=== PATIENT | male | born 1975 | race Caucasian/White ===

== ENCOUNTER 2017-05-18 00:57 | Observation (INO) | payer SELFPAY ==
[~2017-05-18] VITALS: Ht 172.7 cm; Wt 102.3 kg
[2017-05-18] VITALS (9 sets, daily range): BP systolic 133–155; BP diastolic 77–97; PULSE 87–120; RESP 16–20; TEMP 97.6–98.7; O2SAT 94–98
[2017-05-18] MEDS ORDERED: IOHEXOL 350 MG/ML 10 ML VIAL (for RAD DIAG) IVCONTRAST ONE (00:58)
[2017-05-18] MEDS ORDERED: SODIUM CHLOR 0.9% 1000 ML INJ 1,000 ML IV SCH (01:09)
[2017-05-18] MEDS ORDERED: THIAMINE INJ 100 MG in SODIUM CHLORIDE 0.9% INJ 100 ML IV ONE (01:15)
[2017-05-18] MEDS ORDERED: SODIUM CHLORIDE 0.9% FLUSH 10 ML FLUSH IV FLUSH PRN ×2 (01:15→05:15)
[2017-05-18 01:21] LABS: BASOPHIL % 0.5 % (0.0-2.0); EOSINOPHIL # 0.1 TH/MM3 (0-0.4); HEMOGLOBIN 14.6 GM/DL (13.0-17.0); LYMPH % 32.3 % (9.0-44.0); LYMPHOCYTE # 1.7 TH/MM3 (1.0-4.8); MEAN CELL VOLUME 91.8 FL (80.0-100.0); MEAN CORPUSCULAR HEMOGLOBIN 30.5 PG (27.0-34.0); MEAN CORPUSCULAR HGB CONC 33.2 % (32.0-36.0); MEAN PLATELET VOLUME 7.2 FL (7.0-11.0); MONO % 11.3 % (0.0-8.0); MONOCYTE # 0.6 TH/MM3 (0-0.9); NEUT % 54.9 % (16.0-70.0); PLATELET COUNT 178 TH/MM3 (150-450); RED BLOOD COUNT 4.79 MIL/MM3 (4.50-5.90); RED CELL DISTRIBUTION WIDTH 13.2 % (11.6-17.2); WHITE BLOOD COUNT 5.4 TH/MM3 (4.0-11.0)
[2017-05-18 01:28] LABS: CHLORIDE 105 MEQ/L (98-107); SODIUM (NA) 138 MEQ/L (136-145)
[2017-05-18 01:31] LABS: ALBUMIN 3.7 GM/DL (3.4-5.0); BICARBONATE 25.9 MEQ/L (21.0-32.0); CALCIUM 7.9 MG/DL (8.5-10.1); GLUCOSE,RANDOM 126 MG/DL (74-106)
[2017-05-18 01:32] LABS: BLOOD UREA NITROGEN 10 MG/DL (7-18)
[2017-05-18 01:34] LABS: ALT (GPT) 23 U/L (12-78); AST (GOT) 31 U/L (15-37)
[2017-05-18 01:35] LABS: CREATININE 0.93 MG/DL (0.60-1.30); GLOMERULAR FILTRATION RATE 90 ML/MIN (>89)
[2017-05-18 01:36] LABS: TOTAL PROTEIN 8.1 GM/DL (6.4-8.2)
[2017-05-18 01:37] LABS: ALKALINE PHOSPHATASE 71 U/L (45-117)
[2017-05-18 01:39] LABS: TROPONIN I LESS THAN 0.02 NG/ML (0.02-0.05)
[2017-05-18 01:47] LABS: TOTAL BILIRUBIN ADULT 0.3 MG/DL (0.2-1.0)
--- NOTE | 2017-05-18 01:52 | PD ---
HPI Chief Complaint: GI Complaint Time Seen by Provider: 01:09 Travel History International Travel<30 days: No Contact w/Intl Traveler<30days: No Traveled to known affect area: No History of Present Illness HPI The patient is a 41-year-old male that three fourths of a gallon of rum an 18 pack of beer within the last 24 hours. He states for the last 2 days he was coughing up some blood and this is what brought him in. He denies any history of cirrhosis or pancreatitis. [facility] Social History Tobacco Use: Yes Allergies-Medications (Allergen,Severity, Reaction): Coded Allergies: No Known Allergies (Unverified , 05/18/17) Reported Meds & Prescriptions Reported Meds & Active Scripts Active Reported Prilosec (Omeprazole Magnesium) 20 Mg Tab 1 Tab PO DAILY Review of Systems Except as stated in HPI: all other systems reviewed are Neg Physical Exam Narrative GENERAL: The patient is alert, oriented 3, obese and in slight apparent distress with his left upper quadrant abdominal discomfort. He appears moderately dehydrated. His vital signs show blood pressure 155/97 with heart rate of 120 but the rest of vital signs are normal. He does not appear clinically intoxicated. SKIN: Focused skin assessment warm/dry. HEAD: Atraumatic. Normocephalic. EYES: Pupils equal and round. No scleral icterus. No injection or drainage. ENT: No nasal bleeding or discharge. Mucous membranes pink and moist. NECK: Trachea midline. No JVD. CARDIOVASCULAR: Regular rate and rhythm. No murmur appreciated. RESPIRATORY: No accessory muscle use. Clear to auscultation. Breath sounds equal bilaterally. GASTROINTESTINAL: Abdomen soft, with tenderness to direct palpation in the left upper/middle quadrants, nondistended. Hepatic and splenic margins not palpable. No guarding or rebound is present. MUSCULOSKELETAL: No obvious deformities. No clubbing. No cyanosis. No edema. NEUROLOGICAL: Awake and alert. No obvious cranial nerve deficits. Motor grossly within normal limits. Normal speech. PSYCHIATRIC: Appropriate mood and affect; insight and judgment normal. Data Data Last Documented VS Vital Signs Date Time Temp Pulse Resp B/P (MAP) Pulse Ox O2 Delivery O2 Flow Rate FiO2 05/18/17 04:12 90 18 98 Nasal Cannula 2.00 05/18/17 00:57 98.2 Orders Orders Electrocardiogram (05/18/17 01:09) Complete Blood Count With Diff (05/18/17 01:09) Comprehensive Metabolic Panel (05/18/17 01:09) Troponin I (05/18/17 01:09) Ecg Monitoring (05/18/17 01:09) Iv Access Insert/Monitor (05/18/17 01:09) Oximetry (05/18/17 01:09) Sodium Chloride 0.9% Flush (Ns Flush) (05/18/17 01:15) Sodium Chlor 0.9% 1000 Ml Inj (Ns 1000 M (05/18/17 01:09) Thiamine Inj (Thiamine Inj) (05/18/17 01:15) Alcohol (Ethanol) (05/18/17 01:09) Chest, Pa & Lat (05/18/17 01:34) Ct Abd/Pel W Iv Contrast(Rout) (05/18/17 01:39) Lipase (05/18/17 01:10) Iohexol 350 Inj (Omnipaque 350 Inj) (05/18/17 00:58) Pantoprazole Inj (Protonix Inj) (05/18/17 05:15) Famotidine Inj (Pepcid Inj) (05/18/17 05:15) Vital Signs (Adult) Q4H (05/18/17 05:12) Bedside Glucose ROEL.CSUGAR (05/18/17 05:12) Intake + Output ROEL.QSHIFT (05/18/17 05:12) Alcohol Withdrawal Asmt-Ciwa Q4HX18 (05/18/17 05:12) ^ Seizure Precautions (05/18/17 05:12) Folic Acid (Folate) (05/18/17 09:00) Thiamine (Vit B1) (Vitamin B1) (05/18/17 09:00) Multivitamins-Minerals Therap (Theragran (05/18/17 09:00) Consult Cm-Etoh Abuse Dc Plan (05/18/17 ) Flumazenil Inj (Romazicon Inj) (05/18/17 05:15) Lorazepam (Ativan) (05/18/17 05:15) Lorazepam Inj (Ativan Inj) (05/18/17 05:15) Lorazepam (Ativan) (05/18/17 05:15) Lorazepam Inj (Ativan Inj) (05/18/17 05:15) Lorazepam Inj (Ativan Inj) (05/18/17 05:15) Lorazepam Inj (Ativan Inj) (05/18/17 05:15) Haloperidol Inj (Haldol Inj) (05/18/17 05:15) Hgb & Hct (05/18/17 12:00) Famotidine Inj (Pepcid Inj) (05/18/17 21:00) Place In Observation (05/18/17 ) Vital Signs (Adult) Q4H (05/18/17 05:12) Activity Oob Ad Avani (05/18/17 05:12) Advertising Sales Assistant / Telemetry .CONTINUOUS (05/18/17 05:12) Intake + Output ROEL.QSHIFT (05/18/17 05:12) Diet Regular Basic (05/18/17 Breakfast) Sodium Chlor 0.9% 1000 Ml Inj (Ns 1000 M (05/18/17 05:12) Sodium Chloride 0.9% Flush (Ns Flush) (05/18/17 05:15) Sodium Chloride 0.9% Flush (Ns Flush) (05/18/17 09:00) Ondansetron Inj (Zofran Inj) (05/18/17 05:15) Comprehensive Metabolic Panel (05/19/17 06:00) Complete Blood Count With Diff (05/19/17 06:00) Scd Bilateral/Knee High ROEL.BID (05/18/17 05:12) Will Bilateral/Knee High ROEL.QSHIFT (05/18/17 05:15) Acetaminophen (Tylenol) (05/18/17 05:15) Oxycodone (Roxicodone) (05/18/17 05:15) Oxycodone (Roxicodone) (05/18/17 05:15) Docusate Sodium-Senna (Vonda-Colace) (05/18/17 09:00) Magnesium Hydroxide Liq (Milk Of Magnesi (05/18/17 05:15) Sennosides (Senokot) (05/18/17 05:15) Bisacodyl Supp (Dulcolax Supp) (05/18/17 05:15) Lactulose Liq (Lactulose Liq) (05/18/17 05:15) Admit Order (Ed Use Only) (05/18/17 05:15) Labs Laboratory Tests Test 05/18/17 01:10 White Blood Count 5.4 TH/MM3 Red Blood Count 4.79 MIL/MM3 Hemoglobin 14.6 GM/DL Hematocrit 44.0 % Mean Corpuscular Volume 91.8 FL Mean Corpuscular Hemoglobin 30.5 PG Mean Corpuscular Hemoglobin Concent 33.2 % Red Cell Distribution Width 13.2 % Platelet Count 178 TH/MM3 Mean Platelet Volume 7.2 FL Neutrophils (%) (Auto) 54.9 % Lymphocytes (%) (Auto) 32.3 % Monocytes (%) (Auto) 11.3 % Eosinophils (%) (Auto) 1.0 % Basophils (%) (Auto) 0.5 % Neutrophils # (Auto) 3.0 TH/MM3 Lymphocytes # (Auto) 1.7 TH/MM3 Monocytes # (Auto) 0.6 TH/MM3 Eosinophils # (Auto) 0.1 TH/MM3 Basophils # (Auto) 0.0 TH/MM3 CBC Comment DIFF FINAL Differential Comment Blood Urea Nitrogen 10 MG/DL Creatinine 0.93 MG/DL Random Glucose 126 MG/DL Total Protein 8.1 GM/DL Albumin 3.7 GM/DL Calcium Level 7.9 MG/DL Alkaline Phosphatase 71 U/L Aspartate Amino Transf (AST/SGOT) 31 U/L Alanine Aminotransferase (ALT/SGPT) 23 U/L Total Bilirubin 0.3 MG/DL Sodium Level 138 MEQ/L Potassium Level 3.4 MEQ/L Chloride Level 105 MEQ/L Carbon Dioxide Level 25.9 MEQ/L Anion Gap 7 MEQ/L Estimat Glomerular Filtration Rate 90 ML/MIN Troponin I LESS THAN 0.02 NG/ML Lipase 213 U/L Ethyl Alcohol Level 339 MG/DL [facility] Medical Decision Making Medical Screen Exam Complete: Yes Emergency Medical Condition: Yes Medical Record Reviewed: Yes Interpretation(s) The CBC is normal. The complete metabolic profile shows a calcium of 7.9, potassium 3.4 but is otherwise unremarkable. The troponin I is less than 0.02. The alcohol level is 339. The lipase is 213. The chest x-ray shows no evidence of acute cardiopulmonary disease. The EKG shows sinus tachycardia with a rate of [address] elevation or depression. The CT abdomen/ pelvis shows no acute abnormality. Differential Diagnosis Alcohol gastritis, ulcer pain, acute alcohol intoxication, electrolyte disorder , anemia Narrative Course The patient has not vomited in the emergency department since he arrived. It is only through his history that he states he vomited blood. He likely has alcohol gastritis. He certainly does have alcohol intoxication. His abdominal pain apparently is minimal. He has been sleeping most of the time here in the emergency department. Has a high level of alcohol and claims to have been vomiting blood. He will be [address] Guzman, I discussed the patient with her. At this time the patient is stable with normal hemoglobin. Physician Communication Physician Communication I discussed the patient with Dr. Guzman, the patient will be 23 hour observation to her. Diagnosis Primary Impression: Alcoholic gastritis with bleeding Additional Impression: Alcohol intoxication Admitting Information Admitting Physician Requests: Observation Med/Other Pt SpecificInfo: No Change to Meds Jose Manuel Franz MD May 18, 2017 01:52
--- NOTE | 2017-05-18 01:57 | RADRPT ---
EXAM DATE/TIME: 05/18/2017 01:40 [facility] COMPARISON: No previous studies available for comparison. INDICATIONS : Hemoptysis starting today MEDICAL HISTORY : None. SURGICAL HISTORY : None. ENCOUNTER: Initial ACUITY: 1 day PAIN SCORE: 0/10 LOCATION: Bilateral chest FINDINGS: PA and lateral views of the chest demonstrate the lungs to be symmetrically aerated without evidence of mass, infiltrate or effusion. The cardiomediastinal contours are unremarkable. Osseous structure s are intact. CONCLUSION: No evidence of acute cardiopulmonary disease. Malik Pandey MD on May 18, 2017 at 1:55 Board Certified Radiologist. This report was verified electronically.
--- NOTE | 2017-05-18 02:52 | RADRPT ---
EXAM DATE/TIME: 05/18/2017 02:24 [facility] COMPARISON: No previous studies available for comparison. INDICATIONS : Vomiting up blood. IV CONTRAST: 95 cc Omnipaque 350 (iohexol) IV ORAL CONTRAST: No oral contrast ingested. RADIATION DOSE: 21.45 CTDIvol (mGy) MEDICAL HISTORY : Alcohol abuse SURGICAL HISTORY : None. ENCOUNTER: Initial ACUITY: 1 day PAIN SCALE: 0/10 LOCATION: abdomen TECHNIQUE: Volumetric scanning of the abdomen and pelvis was performed. Using automated exposure control and ad justment of the mA and/or kV according to patient size, radiation dose was kept as low as reasonably achievable to obtain optimal diagnostic quality images. DICOM format image data is available electro nically for review and comparison. FINDINGS: LOWER LUNGS: The visualized lower lungs are clear. LIVER: Homogeneous density without lesion. There is no dilation of the biliary tree. No calcified gallston es. SPLEEN: Normal size without lesion. PANCREAS: Within normal limits. KIDNEYS: Normal in size and shape. There is no mass, stone or hydronephrosis. ADRENAL GLANDS: Within normal limits. VASCULAR: There is no aortic aneurysm. BOWEL/MESENTERY: The stomach, small bowel, and colon demonstrate no acute abnormality. There is no free intraperitone al air or fluid. No perceptible varices. The appendix is well-visualized and normal. ABDOMINAL WALL: Within normal limits. RETROPERITONEUM: There is no lymphadenopathy. BLADDER: No wall thickening or mass. REPRODUCTIVE: Within normal limits. INGUINAL: There is no lymphadenopathy or hernia. MUSCULOSKELETAL: Within normal limits for patient age. CONCLUSION: No acute abnormality demonstrated. Malik Pandey MD on May 18, 2017 at 2:50 Board Certified Radiologist. This report was verified electronically.
[2017-05-18] MEDS ORDERED: PRIL20TA2 PO (02:55)
[2017-05-18] MEDS ORDERED: ACETAMINOPHEN 325 MG TAB PO PRN (05:15)
[2017-05-18] MEDS ORDERED: PANTOPRAZOLE SODIUM 40 MG VIAL IVP ONE (05:15)
[2017-05-18] MEDS ORDERED: HALOPERIDOL LACTATE 5 MG/ML AMP IM PRN (05:15)
[2017-05-18] MEDS ORDERED: LORazepam 1 MG TAB PO PRN (05:15)
[2017-05-18] MEDS ORDERED: FAMOTIDINE 20 MG/2 ML VIAL IV PUSH ONE (05:15)
[2017-05-18] MEDS ORDERED: FLUMAZENIL 0.5 MG/5 ML VIAL IV PUSH PRN (05:15)
[2017-05-18] MEDS ORDERED: BISACODYL 10 MG SUPP RECTAL PRN (05:15)
[2017-05-18] MEDS ORDERED: LORazepam 2 MG TAB PO PRN (05:15)
[2017-05-18] MEDS ORDERED: MAGNESIUM HYDROXIDE SUSP 30 ML CUP PO PRN (05:15)
[2017-05-18] MEDS ORDERED: SENNOSIDES 8.6 MG TAB PO PRN (05:15)
[2017-05-18] MEDS ORDERED: LACTULOSE SYRUP 20 GM/30 ML CUP PO PRN (05:15)
[2017-05-18] MEDS ORDERED: LORazepam 2 MG/ML VIAL IV PUSH PRN ×3 (05:15)
[2017-05-18] MEDS: SODIUM CHLOR 0.9% 1000 ML INJ 1,000 ML IV SCH ×2 (05:30→15:12)
[2017-05-18] MEDS: ONDANSETRON HCL 4 MG/2 ML VIAL IVP PRN ×3 (05:49→18:17)
[2017-05-18 08:00] LABS: HEMATOCRIT 39.9 % (39.0-51.0); HEMOGLOBIN 13.5 GM/DL (13.0-17.0)
[2017-05-18] MEDS: SODIUM CHLORIDE 0.9% FLUSH 10 ML FLUSH IV FLUSH SCH ×2 (08:47→22:33)
[2017-05-18] MEDS: FOLIC ACID 1 MG TAB PO SCH (08:47)
[2017-05-18] MEDS: DOCUSATE SODIUM 50 MG/SENNA 8.6 MG TAB PO SCH ×2 (08:47→22:33)
[2017-05-18] MEDS: MULTIVITAMINS/MINERALS THERAPEUTIC TAB PO SCH (08:47)
[2017-05-18] MEDS: THIAMINE HCL 100 MG TAB PO SCH (08:47)
[2017-05-18] MEDS: LORazepam 2 MG/ML VIAL IV PUSH PRN ×3 (10:03→18:18)
--- NOTE | 2017-05-18 11:17 | EKG ---
Date Performed: 05/18/2017 Time Performed: 01:25:36 PTAGE: 41 years EKG: SINUS TACHYCARDIA ABNORMAL RHYTHM ECG NO PREVIOUS TRACING DOCTOR: Ghanshyam Navarro Interpretating Date/Time 05/18/2017 11:12:43
--- NOTE | 2017-05-18 11:51 | HHI.HP ---
[facility] Service [facility] Primary Care Physician No Primary Care Physician Admission Diagnosis Alcohol gastritis, alcohol intoxication Diagnoses: (1) Hematemesis Diagnosis: Principal (2) Hemoptysis Diagnosis: Principal (3) Alcohol intoxication Diagnosis: Secondary (4) Alcoholic gastritis with bleeding Diagnosis: Principal (5) Delirium tremens Diagnosis: Principal (6) Alcohol withdrawal delirium Diagnosis: Principal Travel History International Travel<30 Days: No Contact w/Intl Traveler <30 Da: No Traveled to Known Affected Are: No History of Present Illness Mr. Ac is a 41-year-old male. He has a past history of alcoholism. He says he's been drinking very heavily for the past 2 weeks but drinks heavily at baseline for the past 10 years. For the past 2 days he's been vomiting blood and coughing up blood. He came in the hospital for evaluation of this. He also has severe abdominal pain. Nausea and vomiting present. No fever reported. She feels at the point when I am seeing him that he is entered withdrawal. He has tremor. His abdominal cramping. No other complaints today. Review of Systems Constitutional: DENIES: Fatigue, Fever, Chills Eyes: DENIES: Diplopia, Eye inflammation, Eye pain Ears, nose, mouth, throat: DENIES: Hearing loss, Vertigo, Nasal discharge Respiratory: DENIES: Cough, Wheezing, Shortness of breath Cardiovascular: DENIES: Chest pain, Palpitations, Syncope Gastrointestinal: COMPLAINS OF: Abdominal pain, Nausea, Vomiting Musculoskeletal: DENIES: Joint pain, Muscle aches, Stiffness, Joint Swelling Integumentary: DENIES: Abnormal pigmentation, Nail changes, Pruritus, Rash Hematologic/lymphatic: DENIES: Bruising, Lymphadenopathy Immunologic/allergic: DENIES: Eczema, Urticaria Neurologic: DENIES: Abnormal gait, Headache, Paresthesias Psychiatric: COMPLAINS OF: Anxiety, DENIES: Confusion, Hallucinations Past Family Social History Past Medical History Hypertension Hiatal hernia Past Surgical History No history of surgeries Reported Medications Reported Meds & Active Scripts Active Reported Prilosec (Omeprazole Magnesium) 20 Mg Tab 1 Tab PO DAILY Allergies: Coded Allergies: No Known Allergies (Unverified , 05/18/17) Active Ordered Medications Administered Medications Medications (Trade) Dose Ordered Sig/Tania Route PRN Reason Start Time Stop Time Status Last Admin Dose Admin Folic Acid (Folate) 1 mg DAILY PO 05/18/17 09:00 05/23/17 08:59 05/18/17 08:47 Thiamine HCl (Vitamin B1) 100 mg DAILY PO 05/18/17 09:00 05/18/17 08:47 Multivitamins/ Minerals Therapeutic (Theragran M Tab) 1 tab DAILY PO 05/18/17 09:00 05/23/17 08:59 05/18/17 08:47 Lorazepam (Ativan) 1 mg Q4H PRN PO CIWA 8 - 10 05/18/17 05:15 05/18/17 05:49 Lorazepam (Ativan Inj) 1 mg Q4H PRN IV PUSH CIWA 8 - 10 05/18/17 05:15 05/18/17 10:03 Sodium Chloride 1,000 ml @ 100 mls/hr Q10H IV 05/18/17 05:12 05/18/17 05:30 Ondansetron HCl (Zofran Inj) 4 mg Q6H PRN IVP NAUSEA OR VOMITING 05/18/17 05:15 05/18/17 11:34 Senna/Docusate Sodium (Vonda-Colace) 1 tab BID PO 05/18/17 09:00 05/18/17 08:47 Chlordiazepoxide (Librium) 10 mg Q6H PO 05/18/17 12:00 05/18/17 11:28 Family History Diabetes mellitus type 2 and coronary artery disease in mother and father Social History Nicotine, chewing tobacco use Alcohol abuse No illicit drug abuse Physical Exam Vital Signs Vital Signs Date Time Temp Pulse Resp B/P (MAP) Pulse Ox O2 Delivery O2 Flow Rate FiO2 05/18/17 09:50 18 05/18/17 08:00 97.6 90 20 142/78 (99) 96 05/18/17 06:30 05/18/17 05:53 87 16 133/77 (95) 96 Room Air 05/18/17 04:12 90 18 98 Nasal Cannula 2.00 05/18/17 02:48 101 16 139/93 (108) 98 Nasal Cannula 2.00 05/18/17 01:50 Nasal Cannula 2.00 05/18/17 00:57 98.2 120 18 155/97 (116) 94 Physical Exam GENERAL: NAD, A&Ox3,Fine tremor HEAD: Normocephalic. NECK: Supple, trachea midline. No lymphadenopathy. EYES: No scleral icterus. No injection or drainage. CARDIOVASCULAR: Regular rate and rhythm without murmurs, gallops, or rubs. RESPIRATORY: Breath sounds equal bilaterally. No accessory muscle use. GASTROINTESTINAL: Abdomen soft, non-tender, nondistended. MUSCULOSKELETAL: No cyanosis, or edema., SKIN: Warm and dry. NEURO: No focal neurological deficitis. Laboratory Laboratory Tests Test 05/18/17 01:10 05/18/17 07:45 White Blood Count 5.4 Red Blood Count 4.79 Hemoglobin 14.6 13.5 Hematocrit 44.0 39.9 Mean Corpuscular Volume 91.8 Mean Corpuscular Hemoglobin 30.5 Mean Corpuscular Hemoglobin Concent 33.2 Red Cell Distribution Width 13.2 Platelet Count 178 Mean Platelet Volume 7.2 Neutrophils (%) (Auto) 54.9 Lymphocytes (%) (Auto) 32.3 Monocytes (%) (Auto) 11.3 Eosinophils (%) (Auto) 1.0 Basophils (%) (Auto) 0.5 Neutrophils # (Auto) 3.0 Lymphocytes # (Auto) 1.7 Monocytes # (Auto) 0.6 Eosinophils # (Auto) 0.1 Basophils # (Auto) 0.0 CBC Comment DIFF FINAL Differential Comment Blood Urea Nitrogen 10 Creatinine 0.93 Random Glucose 126 Total Protein 8.1 Albumin 3.7 Calcium Level 7.9 Alkaline Phosphatase 71 Aspartate Amino Transf (AST/SGOT) 31 Alanine Aminotransferase (ALT/SGPT) 23 Total Bilirubin 0.3 Sodium Level 138 Potassium Level 3.4 Chloride Level 105 Carbon Dioxide Level 25.9 Anion Gap 7 Estimat Glomerular Filtration Rate 90 Troponin I LESS THAN 0.02 Lipase 213 Ethyl Alcohol Level 339 Result Diagram: 05/18/17 0745 05/18/170 Imaging Last Impressions Abdomen/Pelvis CT 05/18/17138 Signed Impressions: Service Date/Time: Thursday, May 18, 2017 02:24 - CONCLUSION: No acute abnormality demonstrated. Malik Pandey MD Chest X-Ray 05/18/17133 Signed Impressions: Service Date/Time: Thursday, May 18, 2017 01:40 - CONCLUSION: No evidence of acute cardiopulmonary disease. Malik Pandey MD Caprini VTE Risk Assessment Caprini VTE Risk Assessment: No/Low Risk (score <= 1) Caprini Risk Assessment Model Point Value = 1 Point Value = 2 Point Value = 3 Point Value = 5 Age 41-60 Minor surgery BMI > 25 kg/m2 Swollen legs Varicose veins or History of unexplained or recurrent spontaneous Oral contraceptives or hormone replacement Sepsis (< 1 month) Serious lung disease, including pneumonia (< 1 month) Abnormal pulmonary function Acute myocardial infarction Congestive heart failure (< 1 month) History of inflammatory bowel disease Medical patient at bed rest Age 61-74 Arthroscopic surgery Major open surgery (> 45 min) Laparoscopic surgery (> 45 min) Malignancy Confined to bed (> 72 hours) Immobilizing plaster cast Central venous access Age >= 75 History of VTE Family history of VTE Factor V Leiden Prothrombin [id number] Lupus anticoagulant Anticardiolipin antibodies Elevated serum homocysteine Heparin-induced thrombocytopenia Other congenital or acquired thrombophilia Stroke (< 1 month) Elective arthroplasty Hip, pelvis, or leg fracture Acute spinal cord injury (< 1 month) Prophylaxis Regimen Total Risk Factor Score Risk Level Prophylaxis Regimen 0-1 Low Early ambulation 2 Moderate Order ONE of the following: *Sequential Compression Device (SCD) *Heparin 5000 units SQ BID 3-4 Higher Order ONE of the following medications: *Heparin 5000 units SQ TID *Enoxaparin/Lovenox 40 mg SQ daily (WT < 150 kg, CrCl > 30 mL/min) *Enoxaparin/Lovenox 30 mg SQ daily (WT < 150 kg, CrCl > 10-29 mL/min) *Enoxaparin/Lovenox 30 mg SQ BID (WT < 150 kg, CrCl > 30 mL/min) AND/OR *Sequential Compression Device (SCD) 5 or more Highest Order ONE of the following medications: *Heparin 5000 units SQ TID (Preferred with Epidurals) *Enoxaparin/Lovenox 40 mg SQ daily (WT < 150 kg, CrCl > 30 mL/min) *Enoxaparin/Lovenox 30 mg SQ daily (WT < 150 kg, CrCl > 10-29 mL/min) *Enoxaparin/Lovenox 30 mg SQ BID (WT < 150 kg, CrCl > 30 mL/min) AND *Sequential Compression Device (SCD) Assessment and Plan Problem List: (1) Delirium tremens ICD Code: F10.231 - Alcohol dependence with withdrawal delirium (2) Alcohol withdrawal delirium ICD Code: F10.231 - Alcohol dependence with withdrawal delirium (3) Hemoptysis ICD Code: R04.2 - Hemoptysis (4) Hematemesis ICD Code: K92.0 - Hematemesis (5) Alcoholic gastritis with bleeding ICD Code: K29.21 - Alcoholic gastritis with bleeding Status: Acute (6) Alcohol intoxication ICD Code: F10.929 - Alcohol use, unspecified with intoxication, unspecified Status: Acute Assessment and Plan 41-year-old male admitted secondary to hematemesis and hemoptysis with alcohol withdrawal Hematemesis Follow CBC Liquid diet GI consult Avoid blood thinners IV Protonix drip Hemoptysis May be related to hematemesis Follow respiratory status Avoid blood thinners Alcohol withdrawal Nausea/vomiting Delirium tremens CIWA protocol Librium scheduled Monitor symptoms closely Hypertension IV enalapril as needed Follow blood pressures Adjust treatments as needed DVT prophylaxis SCDs Esau Carballo MD May 18, 2017 11:51
[2017-05-18] MEDS ORDERED: ENALAPRILAT 1.25 MG/ML VIAL IV PUSH PRN (12:00)
[2017-05-18 12:48] LABS: HEMOGLOBIN 13.6 GM/DL (13.0-17.0)
[2017-05-18] MEDS: PANTOPRAZOLE INJ 80 MG in SODIUM CHLORIDE 0.9% INJ 100 ML IV SCH ×2 (13:58→23:09)
--- NOTE | 2017-05-18 17:58 | PD.CONS ---
HPI History of Present Illness This is a 41 year old male with history of alcohol addiction, was admitted to the hospital with history of hematemesis and hemoptysis. He denies any history of melena or hematochezia. On direct questioning he gives history of upper abdominal pain mild to moderate in intensity with no specific radiation, nausea and vomiting. He denies any history of heartburn dysphagia constipation diarrhea jaundice ascites edema anorexia or weight loss PFSH Past Medical History Hypertension Hiatal hernia Past Surgical History No history of surgeries Coded Allergies: No Known Allergies (Unverified , 05/18/17) Medications Medications as per nursing MAR Family History Diabetes mellitus type 2 and coronary artery disease in mother and father Social History Nicotine, chewing tobacco use Alcohol abuse No illicit drug abuse Review of Systems Gastrointestinal: COMPLAINS OF: Abdominal pain, Nausea, Vomiting, Hematemesis, DENIES: Black stools, Bloody stools, Constipation, Diarrhea, Difficulty Swallowing, Anorexia, Odynophagia, Swelling of Abdomen, Heartburn GI Exam Vitals I&O Vital Signs Date Time Temp Pulse Resp B/P (MAP) Pulse Ox O2 Delivery O2 Flow Rate FiO2 05/18/17 16:00 98.6 117 20 145/93 (110) 96 05/18/17 12:00 98.7 107 20 147/94 (111) 98 05/18/17 09:50 18 05/18/17 08:00 97.6 90 20 142/78 (99) 96 05/18/17 06:30 05/18/17 05:53 87 16 133/77 (95) 96 Room Air 05/18/17 04:12 90 18 98 Nasal Cannula 2.00 05/18/17 02:48 101 16 139/93 (108) 98 Nasal Cannula 2.00 05/18/17 01:50 Nasal Cannula 2.00 05/18/17 00:57 98.2 120 18 155/97 (116) 94 I/O 05/17/17 05/17/17 05/17/17 05/18/17 05/18/17 05/18/17 06:59 14:59 22:59 06:59 14:59 22:59 Intake Total 1100 ml Output Total 750 ml 1000 ml Balance 350 ml -1000 ml Intake IV Total 1100 ml Output Urine Total 750 ml 1000 ml # Voids 2 1 Laboratory Test 05/18/17 01:10 05/18/17 07:45 05/18/17 12:10 White Blood Count 5.4 TH/MM3 Red Blood Count 4.79 MIL/MM3 Hemoglobin 14.6 GM/DL 13.5 GM/DL 13.6 GM/DL Hematocrit 44.0 % 39.9 % 40.0 % Mean Corpuscular Volume 91.8 FL Mean Corpuscular Hemoglobin 30.5 PG Mean Corpuscular Hemoglobin Concent 33.2 % Red Cell Distribution Width 13.2 % Platelet Count 178 TH/MM3 Mean Platelet Volume 7.2 FL Neutrophils (%) (Auto) 54.9 % Lymphocytes (%) (Auto) 32.3 % Monocytes (%) (Auto) 11.3 % Eosinophils (%) (Auto) 1.0 % Basophils (%) (Auto) 0.5 % Neutrophils # (Auto) 3.0 TH/MM3 Lymphocytes # (Auto) 1.7 TH/MM3 Monocytes # (Auto) 0.6 TH/MM3 Eosinophils # (Auto) 0.1 TH/MM3 Basophils # (Auto) 0.0 TH/MM3 CBC Comment DIFF FINAL Differential Comment Blood Urea Nitrogen 10 MG/DL Creatinine 0.93 MG/DL Random Glucose 126 MG/DL Total Protein 8.1 GM/DL Albumin 3.7 GM/DL Calcium Level 7.9 MG/DL Alkaline Phosphatase 71 U/L Aspartate Amino Transf (AST/SGOT) 31 U/L Alanine Aminotransferase (ALT/SGPT) 23 U/L Total Bilirubin 0.3 MG/DL Sodium Level 138 MEQ/L Potassium Level 3.4 MEQ/L Chloride Level 105 MEQ/L Carbon Dioxide Level 25.9 MEQ/L Anion Gap 7 MEQ/L Estimat Glomerular Filtration Rate 90 ML/MIN Troponin I LESS THAN 0.02 NG/ML Lipase 213 U/L Ethyl Alcohol Level 339 MG/DL Physical Examination HEENT: Pupils round and reactive to light; normocephalic; atraumatic; no jaundice. Throat is clear. NECK: Neck is supple, no JVD, no lymphadenopathy. CHEST: Chest is clear to auscultation and percussion. CARDIAC: Regular rate and rhythm with no murmur gallop or rubs. ABDOMEN: Soft, nondistended, nontender; no hepatosplenomegaly; bowel sounds are present in all four quadrants. EXTREMITIES: No clubbing, cyanosis, or edema. SKIN: Normal; no rash; no jaundice. LOSS PREVENTION RESEARCH ENGINEER: No focal deficits; alert and oriented times three. Assessment and Plan Assessment: (1) Hemoptysis ICD Codes: R04.2 - Hemoptysis (2) Alcohol withdrawal delirium ICD Codes: F10.231 - Alcohol dependence with withdrawal delirium (3) Hematemesis ICD Codes: K92.0 - Hematemesis (4) Alcohol intoxication ICD Codes: F10.929 - Alcohol use, unspecified with intoxication, unspecified Status: Acute Plan 1. History of hematemesis likely from nausea vomiting related Marva-Kim tear. Other possible causes include esophageal varices/portal gastropathy, peptic ulcer disease 2. Monitor serial hemoglobin levels 3 IV Protonix 40 mg twice daily 4. EGD for further evaluation 5. Continue other supportive measures Colten Baker MD May 18, 2017 17:58
[2017-05-18] MEDS: FAMOTIDINE 20 MG TAB PO SCH (22:33)
[2017-05-19] VITALS (8 sets, daily range): BP systolic 121–149; BP diastolic 72–96; PULSE 53–81; RESP 16–24; TEMP 96.9–98.5; O2SAT 95–98
[2017-05-19] MEDS: SODIUM CHLOR 0.9% 1000 ML INJ 1,000 ML IV SCH ×3 (01:58→23:51)
[2017-05-19 07:28] LABS: AUTOMATED NEUTROPHIL # 3.5 TH/MM3 (1.8-7.7); BASOPHIL % 0.4 % (0.0-2.0); EOSINOPHIL # 0.3 TH/MM3 (0-0.4); EOSINOPHIL % 4.6 % (0.0-4.0); HEMATOCRIT 38.3 % (39.0-51.0); HEMOGLOBIN 13.2 GM/DL (13.0-17.0); LYMPH % 19.6 % (9.0-44.0); LYMPHOCYTE # 1.1 TH/MM3 (1.0-4.8); MEAN CELL VOLUME 91.7 FL (80.0-100.0); MEAN CORPUSCULAR HEMOGLOBIN 31.6 PG (27.0-34.0); MEAN CORPUSCULAR HGB CONC 34.5 % (32.0-36.0); MEAN PLATELET VOLUME 7.2 FL (7.0-11.0); MONO % 11.2 % (0.0-8.0); MONOCYTE # 0.6 TH/MM3 (0-0.9); NEUT % 64.2 % (16.0-70.0); PLATELET COUNT 129 TH/MM3 (150-450); RED BLOOD COUNT 4.18 MIL/MM3 (4.50-5.90); WHITE BLOOD COUNT 5.5 TH/MM3 (4.0-11.0)
[2017-05-19 07:34] LABS: CHLORIDE 102 MEQ/L (98-107); SODIUM (NA) 138 MEQ/L (136-145)
[2017-05-19 07:39] LABS: ALBUMIN 3.2 GM/DL (3.4-5.0); BICARBONATE 29.7 MEQ/L (21.0-32.0); BLOOD UREA NITROGEN 9 MG/DL (7-18); CALCIUM 7.7 MG/DL (8.5-10.1); GLUCOSE,RANDOM 88 MG/DL (74-106)
[2017-05-19 07:42] LABS: ALT (GPT) 17 U/L (12-78); AST (GOT) 23 U/L (15-37); CREATININE 0.92 MG/DL (0.60-1.30); GLOMERULAR FILTRATION RATE 91 ML/MIN (>89)
[2017-05-19 07:44] LABS: ALKALINE PHOSPHATASE 62 U/L (45-117); TOTAL BILIRUBIN ADULT 0.9 MG/DL (0.2-1.0)
[2017-05-19] MEDS: FAMOTIDINE 20 MG TAB PO SCH ×2 (08:16→23:45)
[2017-05-19] MEDS: DOCUSATE SODIUM 50 MG/SENNA 8.6 MG TAB PO SCH ×2 (08:16→21:00)
[2017-05-19] MEDS: FOLIC ACID 1 MG TAB PO SCH (08:17)
[2017-05-19] MEDS: THIAMINE HCL 100 MG TAB PO SCH (08:17)
[2017-05-19] MEDS: MULTIVITAMINS/MINERALS THERAPEUTIC TAB PO SCH (08:17)
[2017-05-19] MEDS: SODIUM CHLORIDE 0.9% FLUSH 10 ML FLUSH IV FLUSH SCH ×2 (08:17→23:45)
--- NOTE | 2017-05-19 11:51 | HHI.GIFU ---
Subjective Remarks Patient laying in bed comfortably, he feel that he is getting into loose mild withdrawal with shaky hands and and agitation, no more vomiting, hemoglobin stable Objective Vitals I&O Vital Signs Date Time Temp Pulse Resp B/P (MAP) Pulse Ox O2 Delivery O2 Flow Rate FiO2 05/19/17 08:00 97.7 53 24 131/84 (100) 95 05/19/17 04:00 96.9 79 20 141/91 (108) 96 05/19/17 00:00 98.5 75 20 125/85 (98) 95 05/18/17 20:00 98.4 92 20 143/91 (108) 95 05/18/17 16:00 98.6 117 20 145/93 (110) 96 05/18/17 12:00 98.7 107 20 147/94 (111) 98 I/O 05/18/17 05/18/17 05/18/17 05/19/17 05/19/17 05/19/17 07:00 15:00 23:00 07:00 15:00 23:00 Intake Total 1100 ml 500 ml 1960 ml Output Total 750 ml 1000 ml 1000 ml Balance 350 ml -1000 ml 500 ml 960 ml Intake Oral 500 ml 960 ml IV Total 1100 ml 1000 ml Output Urine Total 750 ml 1000 ml 1000 ml # Voids 2 1 Laboratory Laboratory Tests Test 05/18/17 12:10 05/19/17 06:50 Hemoglobin 13.6 13.2 Hematocrit 40.0 38.3 White Blood Count 5.5 Red Blood Count 4.18 Mean Corpuscular Volume 91.7 Mean Corpuscular Hemoglobin 31.6 Mean Corpuscular Hemoglobin Concent 34.5 Red Cell Distribution Width 13.0 Platelet Count 129 Mean Platelet Volume 7.2 Neutrophils (%) (Auto) 64.2 Lymphocytes (%) (Auto) 19.6 Monocytes (%) (Auto) 11.2 Eosinophils (%) (Auto) 4.6 Basophils (%) (Auto) 0.4 Neutrophils # (Auto) 3.5 Lymphocytes # (Auto) 1.1 Monocytes # (Auto) 0.6 Eosinophils # (Auto) 0.3 Basophils # (Auto) 0.0 CBC Comment DIFF FINAL Differential Comment Blood Urea Nitrogen 9 Creatinine 0.92 Random Glucose 88 Total Protein 7.0 Albumin 3.2 Calcium Level 7.7 Alkaline Phosphatase 62 Aspartate Amino Transf (AST/SGOT) 23 Alanine Aminotransferase (ALT/SGPT) 17 Total Bilirubin 0.9 Sodium Level 138 Potassium Level 3.2 Chloride Level 102 Carbon Dioxide Level 29.7 Anion Gap 6 Estimat Glomerular Filtration Rate 91 Physical Exam HEENT: Pupils round and reactive to light; normocephalic; atraumatic; no jaundice. Throat is clear. Agitated NECK: Neck is supple, no JVD, no lymphadenopathy. CHEST: Chest is clear to auscultation and percussion. CARDIAC: Regular rate and rhythm with no murmur gallop or rubs. ABDOMEN: Soft, nondistended, nontender; no hepatosplenomegaly; bowel sounds are present in all four quadrants. EXTREMITIES: No clubbing, cyanosis, or edema. SKIN: Normal; no rash; no jaundice. POND SAWYER: No focal deficits; alert and oriented times three. Assessment and Plan Assessment: (1) Hemoptysis ICD Codes: R04.2 - Hemoptysis Status: Resolved (2) Alcohol withdrawal delirium ICD Codes: F10.231 - Alcohol dependence with withdrawal delirium Status: Acute (3) Hematemesis ICD Codes: K92.0 - Hematemesis Status: Resolved (4) Alcohol intoxication ICD Codes: F10.929 - Alcohol use, unspecified with intoxication, unspecified Status: Resolved Plan 1. History of hematemesis likely from nausea vomiting related Marva-Kim tear. Other possible causes include esophageal varices/portal gastropathy, peptic ulcer disease 2. Monitor serial hemoglobin levels 3 IV Protonix 40 mg twice daily 4. EGD for further evaluation 5. I discussed with the patient if he wanted to try to eat today and do the procedure as an outpatient since hemoglobin stable but he preferred to have this done as an inpatient especially that he thinks he might be impending DT, we will do the upper endoscopy possibly tomorrow if anesthesia available and we will watch for DT, we'll advance diet as tolerated for today Arben Garcia MD May 19, 2017 11:51
[2017-05-19] MEDS: PANTOPRAZOLE INJ 80 MG in SODIUM CHLORIDE 0.9% INJ 100 ML IV SCH ×2 (12:21→21:01)
--- NOTE | 2017-05-19 12:35 | HHI.PR ---
Subjective Remarks RN denies any deterioration since last night except for some vomiting. pt reports some intermittent nausea persisting. Objective Vital Signs Date Time Temp Pulse Resp B/P (MAP) Pulse Ox O2 Delivery O2 Flow Rate FiO2 05/19/17 12:00 98.3 68 16 121/72 (88) 97 05/19/17 08:00 97.7 53 24 131/84 (100) 95 05/19/17 04:00 96.9 79 20 141/91 (108) 96 05/19/17 00:00 98.5 75 20 125/85 (98) 95 05/18/17 20:00 98.4 92 20 143/91 (108) 95 05/18/17 16:00 98.6 117 20 145/93 (110) 96 I/O 05/18/17 05/18/17 05/18/17 05/19/17 05/19/17 05/19/17 06:59 14:59 22:59 06:59 14:59 22:59 Intake Total 1100 ml 500 ml 1720 ml 240 ml Output Total 750 ml 1000 ml 1000 ml Balance 350 ml -1000 ml 500 ml 720 ml 240 ml Intake Oral 500 ml 720 ml 240 ml IV Total 1100 ml 1000 ml Output Urine Total 750 ml 1000 ml 1000 ml # Voids 2 1 Result Diagram: 05/19/17 0650 05/19/17 0650 Objective Remarks no marnie abd TTP lying in bed A/P Assessment and Plan 41-year-old male admitted secondary to hematemesis and hemoptysis with alcohol withdrawal Hematemesis - stable for last 12 hours Follow CBC Liquid diet GI consult - possible EGD in AM IV Protonix drip Hemoptysis resolved Alcohol withdrawal Nausea/vomiting Delirium tremens CIWA protocol Librium scheduled improved Hypertension IV enalapril as needed Follow blood pressures Adjust treatments as needed DVT prophylaxis Jose Carlos Morales MD May 19, 2017 12:35
[2017-05-19] MEDS ORDERED: POTASSIUM CHLORIDE 20 MEQ CONTROLLED RELEASE TAB PO ONE (16:00)
[2017-05-19] MEDS: LORazepam 2 MG/ML VIAL IV PUSH PRN (23:47)
[2017-05-20] MEDS ORDERED: LACTATED RINGER'S 1000 ML IV PRN (03:00)
[2017-05-20 04:00] VITALS: BP 131/82; PULSE 80; RESP 19; TEMP 97.8; O2SAT 98
[2017-05-20 06:21] LABS: HEMATOCRIT 39.5 % (39.0-51.0); HEMOGLOBIN 13.7 GM/DL (13.0-17.0); MEAN CELL VOLUME 91.9 FL (80.0-100.0); MEAN CORPUSCULAR HEMOGLOBIN 31.9 PG (27.0-34.0); MEAN CORPUSCULAR HGB CONC 34.7 % (32.0-36.0); MEAN PLATELET VOLUME 7.5 FL (7.0-11.0); PLATELET COUNT 133 TH/MM3 (150-450); WHITE BLOOD COUNT 5.5 TH/MM3 (4.0-11.0)
[2017-05-20] MEDS: SODIUM CHLOR 0.9% 1000 ML INJ 1,000 ML IV SCH (07:12)
[2017-05-20] MEDS ORDERED: POTASSIUM CHLORIDE 20 MEQ CONTROLLED RELEASE TAB PO SCH (09:00)
--- NOTE | 2017-05-20 09:16 | PD.PROCEDR ---
GI Procedure PROCEDURE PERFORMED Upper endoscopy with biopsy INDICATION FOR PROCEDURE Hematemesis PROCEDURE: The procedure, risks and benefits were discussed with Mr. Ac and informed consent was obtained. Anesthesia sedated him with Diprivan. He was placed in the left lateral decubitus position. EGD: The Pentax videoscope was introduced through the oropharynx and advanced to the second portion of the duodenum under direct visualization. Retroflexion was performed in the stomach. Biopsy from the distal esophagus and antrum ESTIMATED BLOOD LOSS: None SPECIMENS REMOVED: None COMPLICATIONS: None IMPRESSION: Irregular Z line and questionable short Barakat's biopsy was done Small hiatal hernia Severe gastropathy and gastritis biopsy from the antrum Duodenitis PLAN: No NSAIDs No alcohol No tobacco Protonix 40 mg daily Follow-up biopsy June patient regular diet Okay to discharge home from GI standpoint Arben Garcia MD May 20, 2017 09:16
--- NOTE | 2017-05-20 09:18 | HHI.GIFU ---
Subjective Remarks Patient laying in bed comfortably, still complaining of some mild diffuse abdominal discomfort, less agitated and nervous Objective Vitals I&O Vital Signs Date Time Temp Pulse Resp B/P (MAP) Pulse Ox O2 Delivery O2 Flow Rate FiO2 05/20/17 07:57 05/20/17 04:00 97.8 80 19 131/82 (98) 98 05/19/17 23:57 98.2 63 20 140/92 (108) 97 05/19/17 21:00 76 05/19/17 20:00 97.9 81 20 135/88 (104) 98 05/19/17 16:00 98.2 78 16 149/96 (113) 97 05/19/17 12:00 98.3 68 16 121/72 (88) 97 I/O 05/19/17 05/19/17 05/19/17 05/20/17 05/20/17 05/20/17 07:00 15:00 23:00 07:00 15:00 23:00 Intake Total 1960 ml 1560 ml 1477 ml Output Total 1000 ml 1300 ml 1400 ml 800 ml Balance 960 ml -1300 ml 160 ml 677 ml Intake Oral 960 ml 240 ml IV Total 1000 ml 1320 ml 1477 ml Output Urine Total 1000 ml 1300 ml 1400 ml 800 ml # Voids 2 # Bowel Movements 1 Laboratory Laboratory Tests Test 05/20/17 06:00 White Blood Count 5.5 Red Blood Count 4.30 Hemoglobin 13.7 Hematocrit 39.5 Mean Corpuscular Volume 91.9 Mean Corpuscular Hemoglobin 31.9 Mean Corpuscular Hemoglobin Concent 34.7 Red Cell Distribution Width 13.0 Platelet Count 133 Mean Platelet Volume 7.5 Physical Exam HEENT: Pupils round and reactive to light; normocephalic; atraumatic; no jaundice. Throat is clear. Agitated NECK: Neck is supple, no JVD, no lymphadenopathy. CHEST: Chest is clear to auscultation and percussion. CARDIAC: Regular rate and rhythm with no murmur gallop or rubs. ABDOMEN: Soft, nondistended, mild diffuse tenderness; no hepatosplenomegaly; bowel sounds are present in all four quadrants. EXTREMITIES: No clubbing, cyanosis, or edema. SKIN: Normal; no rash; no jaundice. WOOD TURNER: No focal deficits; alert and oriented times three. Still anxious Assessment and Plan Assessment: (1) Hemoptysis ICD Codes: R04.2 - Hemoptysis Status: Resolved (2) Alcohol withdrawal delirium ICD Codes: F10.231 - Alcohol dependence with withdrawal delirium Status: Acute (3) Hematemesis ICD Codes: K92.0 - Hematemesis Status: Resolved (4) Alcohol intoxication ICD Codes: F10.929 - Alcohol use, unspecified with intoxication, unspecified Status: Resolved Plan 1. History of hematemesis likely from nausea vomiting related Marva-Kim tear. Other possible causes include esophageal varices/portal gastropathy, peptic ulcer disease 2. Monitor serial hemoglobin levels 3 IV Protonix 40 mg twice daily 4. EGD for further evaluation 5. I discussed with the patient if he wanted to try to eat today and do the procedure as an outpatient since hemoglobin stable but he preferred to have this done as an inpatient especially that he thinks he might be impending DT, we will do the upper endoscopy possibly tomorrow if anesthesia available and we will watch for DT, we'll advance diet as tolerated for today 05/20/2017 patient is doing better, no sign of DT, minimal abdominal discomfort, still some nausea, no sign of active bleeding, had upper endoscopy today IMPRESSION: Irregular Z line and questionable short Barakat's biopsy was done Small hiatal hernia Severe gastropathy and gastritis biopsy from the antrum Duodenitis PLAN: No NSAIDs No alcohol No tobacco Protonix 40 mg daily Follow-up biopsy May feet patient regular diet Okay to discharge home from GI standpoint Arben Garcia MD May 20, 2017 09:18
[2017-05-20] MEDS: SODIUM CHLORIDE 0.9% FLUSH 10 ML FLUSH IV FLUSH SCH (11:08)
[2017-05-20] MEDS: FOLIC ACID 1 MG TAB PO SCH (11:08)
[2017-05-20] MEDS: FAMOTIDINE 20 MG TAB PO SCH (11:08)
[2017-05-20] MEDS: MULTIVITAMINS/MINERALS THERAPEUTIC TAB PO SCH (11:08)
[2017-05-20] MEDS: THIAMINE HCL 100 MG TAB PO SCH (11:09)
[2017-05-20] MEDS: DOCUSATE SODIUM 50 MG/SENNA 8.6 MG TAB PO SCH (11:09)
[2017-05-20] MEDS ORDERED: PANT40TA3 PO (11:13)
[2017-05-20] MEDS ORDERED: OFFICE MEDICATION PO (11:13)
[2017-05-20] MEDS ORDERED: ONDA4TAB7 SL (11:13)
--- NOTE | 2017-05-20 11:15 | HHI.DCPOC ---
Discharge Care Plan Diagnosis: (1) Gastritis and duodenitis (2) Alcohol withdrawal delirium Additional Problems AVOID NSAIDS including naproxen, Aleve, ibuprofen, Advil, Goody powders, BC powders. STOP DRINKING and SMOKING. Goals to Promote Your Health * To prevent worsening of your condition and complications * To maintain your health at the optimal level Directions to Meet Your Goals Take your medications as prescribed Follow your dietary instruction Follow activity as directed Keep your appointments as scheduled Take your immunizations and boosters as scheduled If your symptoms worsen call your PCP, if no PCP go to Urgent Care Center or Emergency Room Smoking is Dangerous to Your Health. Avoid second hand smoke Call the 24-hour hour crisis hotline for domestic abuse at Jose Carlos Marrero MD May 20, 2017 11:15
--- NOTE | 2017-05-20 11:19 | HHI.DS ---
Discharge Summary Admission Date May 18, 2017 at 05:17 Discharge Date: May 20, 2017 Admitting Diagnosis Alcohol gastritis, alcohol intoxication (1) Delirium tremens ICD Code: F10.231 - Alcohol dependence with withdrawal delirium (2) Alcohol withdrawal delirium ICD Code: F10.231 - Alcohol dependence with withdrawal delirium Status: Acute (3) Hemoptysis ICD Code: R04.2 - Hemoptysis Status: Resolved (4) Hematemesis ICD Code: K92.0 - Hematemesis Status: Resolved (5) Alcoholic gastritis with bleeding ICD Code: K29.21 - Alcoholic gastritis with bleeding Status: Acute (6) Alcohol intoxication ICD Code: F10.929 - Alcohol use, unspecified with intoxication, unspecified Status: Resolved Procedures EGD showing severe gastropathy and duodenitis with questionable barrettes esophagus; biopsies taken Brief History - From Admission Mr. Ac is a 41-year-old male. He has a past history of alcoholism. He says he's been drinking very heavily for the past 2 weeks but drinks heavily at baseline for the past 10 years. For the past 2 days he's been vomiting blood and coughing up blood. He came in the hospital for evaluation of this. He also has severe abdominal pain. Nausea and vomiting present. No fever reported. She feels at the point when I am seeing him that he is entered withdrawal. He has tremor. His abdominal cramping. No other complaints today. CBC/BMP: 05/20/17 0600 05/19/17 0650 Significant Findings Laboratory Tests Test 05/18/17 01:10 05/18/17 07:45 05/18/17 12:10 05/19/17 06:50 Monocytes (%) (Auto) 11.3 % (0.0-8.0) 11.2 % (0.0-8.0) Random Glucose 126 MG/DL (74-106) Calcium Level 7.9 MG/DL (8.5-10.1) 7.7 MG/DL (8.5-10.1) Potassium Level 3.4 MEQ/L (3.5-5.1) 3.2 MEQ/L (3.5-5.1) Troponin I LESS THAN 0.02 NG/ML Ethyl Alcohol Level 339 MG/DL (0-5) Red Blood Count 4.18 MIL/MM3 (4.50-5.90) Hematocrit 38.3 % (39.0-51.0) Platelet Count 129 TH/MM3 (150-450) Eosinophils (%) (Auto) 4.6 % (0.0-4.0) Albumin 3.2 GM/DL (3.4-5.0) Test 05/20/17 06:00 Red Blood Count 4.30 MIL/MM3 (4.50-5.90) Platelet Count 133 TH/MM3 (150-450) PE at Discharge Abdomen soft, nontender, nondistended Hospital Course Patient was admitted, started on withdrawal protocol as well as Protonix drip. GI was consulted, performed EGD which showed severe gastropathy and duodenitis. Patient eventually tolerated p.o. intake well and is clinically stable for discharge. He was counseled extensively on avoiding further alcohol intake and refraining from NSAIDs to allow his stomach to heal. Pt Condition on Discharge: Stable Discharge Disposition: Discharge Home Discharge Time: <= 30 minutes Discharge Instructions DIET: Follow Instructions for: Full Liquid Diet Additional Diet Instructions: advance diet as tolerated Activities you can perform: Regular-No Restrictions Follow up Referrals: Gastroenterology - 2 Weeks with Arben Garcia MD PCP Follow-up - 1 Week with Renu Navarro MD New Medications: Miscellaneous (Office Medication) Misc 1 CAP PO DIRECTED for Alcohol Detox, #12 CAP chlordiazepoxide 5 mg capsules 1 cap po tid for 2 days, then 1 cap po bid for 2 days, then 1 cap po daily Ondansetron Odt (Ondansetron Odt) 4 Mg Tab 4 MG SL Q6HR PRN for Nausea/Vomiting, #12 TAB 0 Refills Pantoprazole (Pantoprazole) 40 Mg Tab 40 MG PO DAILY for Reflux, #30 TAB 0 Refills Discontinued Medications: Omeprazole Magnesium (Prilosec) 20 Mg Tab 1 TAB PO DAILY Jose Carlos Marrero MD May 20, 2017 11:19
[2017-05-20 12:00] VITALS: BP 154/96; PULSE 61; RESP 16; TEMP 96.9; O2SAT 96
== END 2017-05-20 14:08 | disposition home or self-care (01) ==
LOC: PHED 00:57 → PHEDA 05:17 → PH3B 06:30
PROVIDERS: ADMIT Hospitalist; ATTEND Hospitalist
DX: K29.21 Alcoholic gastritis with bleeding (principal); K22.9 Disease of esophagus, unspecified; K44.9 Diaphragmatic hernia without obstruction or gangrene; K31.9 Disease of stomach and duodenum, unspecified; K29.80 Duodenitis without bleeding; K29.70 Gastritis, unspecified, without bleeding; K22.70 Barrett's esophagus without dysplasia; R04.2 Hemoptysis; I10 Essential (primary) hypertension; Z83.3 Family history of diabetes mellitus; Z82.49 Family history of ischemic heart disease and other diseases of the circulatory system; F17.200 Nicotine dependence, unspecified, uncomplicated; Y90.8 Blood alcohol level of 240 mg/100 ml or more; F10.231 Alcohol dependence with withdrawal delirium; Z87.19 Personal history of other diseases of the digestive system; R00.0 Tachycardia, unspecified
CPT/HCPCS: 00731; 43239; 71046; 74177; 80053; 80307; 82948; 83690; 84484; 85014; 85018; 85025; 85027; 88305; 88312; 93005; 96361; 96365; 96366; 96375; 96376; 99285; C9113; G0378; J2060; J2405; J3411; J7030; J7120; Q9967

== ENCOUNTER 2017-07-20 20:41 | Emergency (ER) | payer SELFPAY ==
[~2017-07-20] VITALS: Ht 180.3 cm; Wt 98.0 kg
[~2017-07-20 20:41] MED LIST: OFFICE MEDICATION PO; ONDA4TAB7 SL; PANT40TA3 PO
[2017-07-20 21:06] VITALS: BP 146/105; PULSE 109; RESP 20; TEMP 98.7; O2SAT 95
[2017-07-20] MEDS ORDERED: PRIL20TA2 PO (21:09)
[2017-07-20] MEDS ORDERED: ASPIRIN 325 MG TAB PO ONE (21:45)
[2017-07-20] MEDS ORDERED: SODIUM CHLORID 0.9% 500 ML INJ 500 ML IV ONE (21:45)
--- NOTE | 2017-07-20 22:18 | RADRPT ---
EXAM DATE: 07/20/2017 10:14 PM EDT AGE/SEX: 41 years / Male INDICATIONS: Lower chest pain and shortness of breath. CLINICAL DATA: This is the patient's initial encounter. Patient reports that signs and symptoms have been present for 1 week and indicates a pain score of 3/10. MEDICAL/SURGICAL HISTORY: None. None. COMPARISON: No prior [place] exams available for comparison. FINDINGS: Portable AP view of the chest demonstrates a normal-sized cardiac silhouette. The lungs demonstrate n o definite effusion, consolidation, or pneumothorax. The bones and soft tissues demonstrate no acute finding. Lungs are mildly underinflated. CONCLUSION: No acute cardiopulmonary abnormality is identified. Electronically signed by: Malik Shine MD 07/20/2017 10:16 PM EDT
--- NOTE | 2017-07-20 22:30 | PD ---
HPI Chief Complaint: Chest Pain Time Seen by Provider: 21:18 Travel History International Travel<30 days: No Contact w/Intl Traveler<30days: No Traveled to known affect area: No History of Present Illness HPI 41-year-old male the presents to the ED for evaluation of chest pain and palpitations for the past couple of days. Per patient he allegedly going up argument with his significant other. Apparently ever since he has been drinking more and has been ambulating. Per patient the pain gets worse once he ambulates. She states that he has an area of rash on his sternum. States that it feels like it is inflamed. He does have a history of GERD and has a history of peptic ulcer disease as well as head injury past seizures. He is smells heavily of alcohol at this time so history is a little bit limited. Per report given by ED triage nurse patient apparently told her that she had just been his job. Patient does state that he has a history of smoking. Denies any history of hypertension or high cholesterol. Takes no medications at this time other Prilosec. He does state that he drinks heavily every day. Today. The pain in the chest is 3 out of 10 and feels more like a pressure. It is more significant with palpitations with ambulation. No leg pain. No other medical issues. PFSH Past Medical History Anxiety: Yes Depression: Yes Cancer: No Chest Pain: Yes (sometimes with drinking alcohol ) Diabetes: No Diminished Hearing: No Gastrointestinal Disorders: Yes (EGD & Colonoscopy x2 in the past) GERD: Yes Genitourinary: No Hypertension: Yes (sometimes) Musculoskeletal: Yes ("SCIATICA") Psychiatric: Yes Reproductive: No Respiratory: No Immunizations Current: Yes Thyroid Disease: No Tetanus Vaccination: Unknown Influenza Vaccination: No Past Surgical History Surgical History: No Previous Surgery Social History Alcohol Use: Yes Tobacco Use: Yes Substance Use: No Allergies-Medications (Allergen,Severity, Reaction): Coded Allergies: No Known Allergies (Unverified , 05/18/17) Reported Meds & Prescriptions Reported Meds & Active Scripts Active Reported Prilosec (Omeprazole Magnesium) 20 Mg Tab 20 Mg PO DAILY Review of Systems ROS Limitations: Intoxication Except as stated in HPI: all other systems reviewed are Neg Physical Exam Exam Limitations: Intoxication Narrative GENERAL: SKIN: Warm and dry. Has a blanchable erythematous rash on the mid sternum. about less than 1 cm in diameter. Non tender or pruritic. HEAD: Atraumatic. Normocephalic. EYES: Pupils equal and round. No scleral icterus. No injection or drainage. ENT: No nasal bleeding or discharge. Mucous membranes pink and moist. Tongue is midline. No uvula deviation. NECK: Trachea midline. No JVD. CARDIOVASCULAR: Regular rate and rhythm. No murmurs, S3, S4. RESPIRATORY: No accessory muscle use. Clear to auscultation. Breath sounds equal bilaterally. GASTROINTESTINAL: Abdomen soft, non-tender, nondistended. Hepatic and splenic margins not palpable. MUSCULOSKELETAL: Extremities without clubbing, cyanosis, or edema. No obvious deformities. Full range of motion of the upper and lower extremities bilaterally. 2+ pulses bilaterally. NEUROLOGICAL: Awake and alert. No obvious cranial nerve deficits. Motor grossly within normal limits. Five out of 5 muscle strength in the arms and legs. Normal speech. PSYCHIATRIC: Appropriate mood and affect; insight and judgment normal. Data Data Last Documented VS Vital Signs Date Time Temp Pulse Resp B/P (MAP) Pulse Ox O2 Delivery O2 Flow Rate FiO2 07/20/17 21:06 98.7 109 20 146/105 (119) 95 Orders Orders Electrocardiogram (07/20/17 21:33) Ckmb (Isoenzyme) Profile (07/20/17 21:33) Complete Blood Count With Diff (07/20/17 21:33) Comprehensive Metabolic Panel (07/20/17 21:33) Magnesium (Mg) (07/20/17 21:33) Prothrombin Time / Inr (Pt) (07/20/17 21:33) Act Partial Throm Time (Ptt) (07/20/17 21:33) Troponin I (07/20/17 21:33) Lipase (07/20/17 21:33) Chest, Single Ap (07/20/17 21:33) Ecg Monitoring (07/20/17 21:33) Bilateral Bp Monitoring (07/20/17 21:33) Iv Access Insert/Monitor (07/20/17 21:33) Oximetry (07/20/17 21:33) Aspirin (Aspirin) (07/20/17 21:45) Sodium Chlorid 0.9% 500 Ml Inj (Ns 500 M (07/20/17 21:45) Alcohol (Ethanol) (07/20/17 21:33) MDM Medical Decision Making Medical Screen Exam Complete: Yes Emergency Medical Condition: Yes Medical Record Reviewed: Yes Differential Diagnosis Chest pain versus typical chest pain versus ACS versus pneumonia versus fluid overload Narrative Course 41-year-old male presents to the ED for evaluation of chest pain. Patient was properly examined and was found to have signs and symptoms etiology. Some concern for ACS. Labs and imaging order. Patient was given aspirin. Case was signed out to my attending pending disposition and plan. Tobi Hansen Jul 20, 2017 22:30
[2017-07-20 22:50] LABS: AUTOMATED NEUTROPHIL # 4.2 TH/MM3 (1.8-7.7); BASOPHIL % 0.5 % (0.0-2.0); EOSINOPHIL % 0.1 % (0.0-4.0); HEMATOCRIT 42.2 % (39.0-51.0); HEMOGLOBIN 14.6 GM/DL (13.0-17.0); LYMPH % 19.7 % (9.0-44.0); LYMPHOCYTE # 1.2 TH/MM3 (1.0-4.8); MEAN CELL VOLUME 91.4 FL (80.0-100.0); MEAN CORPUSCULAR HEMOGLOBIN 31.5 PG (27.0-34.0); MEAN CORPUSCULAR HGB CONC 34.5 % (32.0-36.0); MEAN PLATELET VOLUME 7.3 FL (7.0-11.0); MONO % 9.9 % (0.0-8.0); MONOCYTE # 0.6 TH/MM3 (0-0.9); NEUT % 69.8 % (16.0-70.0); PLATELET COUNT 135 TH/MM3 (150-450); RED BLOOD COUNT 4.62 MIL/MM3 (4.50-5.90); RED CELL DISTRIBUTION WIDTH 13.5 % (11.6-17.2)
[2017-07-20 23:02] LABS: INTERNATIONAL NORMALIZED RATIO 1.1 RATIO; PROTHROMBIN TIME - PATIENT 10.7 SEC (9.8-11.6)
[2017-07-20 23:18] LABS: AST (GOT) 59 U/L (15-37); BICARBONATE 29.2 MEQ/L (21.0-32.0); BLOOD UREA NITROGEN 7 MG/DL (7-18); CALCIUM 8.4 MG/DL (8.5-10.1); CHLORIDE 101 MEQ/L (98-107); GLOMERULAR FILTRATION RATE 82 ML/MIN (>89); GLUCOSE,RANDOM 114 MG/DL (74-106); MAGNESIUM 2.2 MG/DL (1.5-2.5); SODIUM (NA) 141 MEQ/L (136-145)
[2017-07-20 23:19] LABS: ALT (GPT) 42 U/L (12-78)
[2017-07-20 23:24] LABS: ALKALINE PHOSPHATASE 83 U/L (45-117); TOTAL BILIRUBIN ADULT 0.5 MG/DL (0.2-1.0); TOTAL PROTEIN 8.1 GM/DL (6.4-8.2); TROPONIN I LESS THAN 0.02 NG/ML (0.02-0.05)
[2017-07-21 00:12] VITALS: O2SAT 98
[2017-07-21 00:47] VITALS: BP 123/63; PULSE 113; RESP 20; O2SAT 98
[2017-07-21] MEDS ORDERED: SODIUM CHLOR 0.9% 1000 ML INJ 1,000 ML IV ONE (01:45)
[2017-07-21] MEDS ORDERED: PANTOPRAZOLE SODIUM 40 MG VIAL IV PUSH ONE (01:45)
--- NOTE | 2017-07-21 01:53 | PD ---
Physical Exam Date Seen by Provider: Jul 21, 2017 Time Seen by Provider: 01:48 Narrative GENERAL: Well-developed well-nourished male no acute distress no respiratory distress; GCS 15 SKIN: Warm and dry. HEAD: Normocephalic. EYES: No scleral icterus. No injection or drainage. NECK: Supple, trachea midline. No JVD or lymphadenopathy. CARDIOVASCULAR: Regular rate and rhythm without murmurs, gallops, or rubs. RESPIRATORY: Breath sounds equal bilaterally. No accessory muscle use. GASTROINTESTINAL: Abdomen soft, non-tender, nondistended. MUSCULOSKELETAL: No cyanosis, or edema. BACK: Nontender without obvious deformity. No CVA tenderness. Data Data Last Documented VS Vital Signs Date Time Temp Pulse Resp B/P (MAP) Pulse Ox O2 Delivery O2 Flow Rate FiO2 07/21/17 00:47 113 20 123/63 (83) 98 Room Air 07/20/17 21:06 98.7 Orders Orders Electrocardiogram (07/20/17 21:33) Ckmb (Isoenzyme) Profile (07/20/17 21:33) Complete Blood Count With Diff (07/20/17 21:33) Comprehensive Metabolic Panel (07/20/17 21:33) Magnesium (Mg) (07/20/17 21:33) Prothrombin Time / Inr (Pt) (07/20/17 21:33) Act Partial Throm Time (Ptt) (07/20/17 21:33) Troponin I (07/20/17 21:33) Lipase (07/20/17 21:33) Chest, Single Ap (07/20/17 21:33) Ecg Monitoring (07/20/17 21:33) Bilateral Bp Monitoring (07/20/17 21:33) Iv Access Insert/Monitor (07/20/17 21:33) Oximetry (07/20/17 21:33) Aspirin (Aspirin) (07/20/17 21:45) Sodium Chlorid 0.9% 500 Ml Inj (Ns 500 M (07/20/17 21:45) Alcohol (Ethanol) (07/20/17 21:33) CKMB (07/20/17 22:25) CKMB% (07/20/17 22:25) Ns (Bolus) Inj (07/21/17 01:45) Pantoprazole Inj (Protonix Inj) (07/21/17 01:45) Labs Laboratory Tests Test 07/20/17 22:25 White Blood Count 6.0 TH/MM3 Red Blood Count 4.62 MIL/MM3 Hemoglobin 14.6 GM/DL Hematocrit 42.2 % Mean Corpuscular Volume 91.4 FL Mean Corpuscular Hemoglobin 31.5 PG Mean Corpuscular Hemoglobin Concent 34.5 % Red Cell Distribution Width 13.5 % Platelet Count 135 TH/MM3 Mean Platelet Volume 7.3 FL Neutrophils (%) (Auto) 69.8 % Lymphocytes (%) (Auto) 19.7 % Monocytes (%) (Auto) 9.9 % Eosinophils (%) (Auto) 0.1 % Basophils (%) (Auto) 0.5 % Neutrophils # (Auto) 4.2 TH/MM3 Lymphocytes # (Auto) 1.2 TH/MM3 Monocytes # (Auto) 0.6 TH/MM3 Eosinophils # (Auto) 0.0 TH/MM3 Basophils # (Auto) 0.0 TH/MM3 CBC Comment DIFF FINAL Differential Comment Prothrombin Time 10.7 SEC Prothromb Time International Ratio 1.1 RATIO Activated Partial Thromboplast Time 24.3 SEC Blood Urea Nitrogen 7 MG/DL Creatinine 1.00 MG/DL Random Glucose 114 MG/DL Total Protein 8.1 GM/DL Albumin 4.0 GM/DL Calcium Level 8.4 MG/DL Magnesium Level 2.2 MG/DL Alkaline Phosphatase 83 U/L Aspartate Amino Transf (AST/SGOT) 59 U/L Alanine Aminotransferase (ALT/SGPT) 42 U/L Total Bilirubin 0.5 MG/DL Sodium Level 141 MEQ/L Potassium Level 3.5 MEQ/L Chloride Level 101 MEQ/L Carbon Dioxide Level 29.2 MEQ/L Anion Gap 11 MEQ/L Estimat Glomerular Filtration Rate 82 ML/MIN Total Creatine Kinase 455 U/L Creatine Kinase MB 1.5 NG/ML Creatine Kinase MB % 0.3 % Troponin I LESS THAN 0.02 NG/ML Lipase 196 U/L Ethyl Alcohol Level 329 MG/DL [facility] Medical Record Reviewed: Yes Supervised Visit with BROCK: Yes Interpretation(s) EKG normal sinus rhythm rate [address] elevation injury pattern or ectopy noted Last Impressions Chest X-Ray 07/20/17 1359 Signed Impressions: CONCLUSION: No acute cardiopulmonary abnormality is identified. CBC & BMP Diagram 07/20/17 22:25 Total Protein 8.1, Albumin 4.0, Calcium Level 8.4 L, Magnesium Level 2.2, Alkaline Phosphatase 83, Aspartate Amino Transf (AST/SGOT) 59 H, Alanine Aminotransferase (ALT/SGPT) 42, Total Bilirubin 0.5 Vital Signs Date Time Temp Pulse Resp B/P (MAP) Pulse Ox O2 Delivery O2 Flow Rate FiO2 07/21/17 00:47 113 20 123/63 (83) 98 Room Air 07/21/17 00:12 98 Room Air 07/20/17 21:06 98.7 109 20 146/105 (119) 95 Serum alcohol level: 329, elevated Troponin I less than 0.02, not elevated CK total 455, elevated; MB percent 0.3% not elevated Differential Diagnosis Palpitations, arrhythmia, electrolyte disturbance, alcohol intoxication, chest pain, atypical chest pain, ACS, esophageal spasm, gastritis Narrative Course 41-year-old male presents to the emergency department for complaint of palpitations shortness of breath and chest tightness after quitting his job abruptly today and also noting drinking alcohol continues for 2 days. Patient reports that he is waiting for a [place] settlement is hopefully will settle in his favor. Patient presently states he feels some improved but still feels groggy. Lab values and EKG chest x-ray revealed no acute abnormality except for elevation of serum alcohol 329. Nonspecific elevation of CK total of 455 but MB percent 0.2% is most likely reflective of musculoskeletal changes. Patient does have tenderness to the chest wall with palpation that reproduces tightness sensation. Patient is not suicidal or homicidal. Patient recently admitted to the hospital 05/18/17 for gastritis duodenitis and upper GI bleed related to alcohol use. Patient continues to drink alcohol. Patient at this point is medically cleared will be allowed to sleep off alcohol intoxication and will give referral to [facility]. Patient also will be given an additional liter of normal a dose of Protonix 40 mg IV and Carafate 1 g. Diagnosis Primary Impression: Heart palpitations Additional Impressions: Alcohol intoxication Acute gastritis Chest wall pain Misty Duke MD Jul 21, 2017 01:53
[2017-07-21 04:07] VITALS: BP 117/69; PULSE 86; RESP 15; TEMP 98.2; O2SAT 96
[2017-07-21 08:04] VITALS: BP 124/78; PULSE 80; RESP 14; O2SAT 96
--- NOTE | 2017-07-22 08:43 | EKG ---
Date Performed: 07/20/2017 Time Performed: 22:11:34 PTAGE: 41 years EKG: Sinus rhythm NORMAL ECG PREVIOUS TRACING : 05/18/2017 01.25 Since the previous tracing, no significant change noted DOCTOR: Jayy Guerrier Interpretating Date/Time 07/22/2017 08:41:25
== END 2017-07-21 08:40 | disposition home or self-care (01) ==
LOC: NEPC 20:41
DX: R00.2 Palpitations (principal); F10.129 Alcohol abuse with intoxication, unspecified; K29.00 Acute gastritis without bleeding; R07.89 Other chest pain; R21 Rash and other nonspecific skin eruption; K21.9 Gastro-esophageal reflux disease without esophagitis; I10 Essential (primary) hypertension; Z87.11 Personal history of peptic ulcer disease; Z79.899 Other long term (current) drug therapy
CPT/HCPCS: 71045; 80053; 80307; 82550; 82552; 83690; 83735; 84484; 85025; 85610; 85730; 93005; 96361; 96374; 99284; C9113; J7030; J7040